=== PATIENT | male | born 1985 | race Two or more races ===

== ENCOUNTER 2024-06-05 18:55 | Emergency (ER) | payer BC, OTHER ==
[~2024-06-05] VITALS: Ht 175.3 cm; Wt 107.2 kg
[2024-06-05 19:00] VITALS: BP 126/69; PULSE 87; RESP 18; TEMP 98.3; O2SAT 97
--- NOTE | 2024-06-05 20:19 | ED.PDOC ---
History of Present Illness(SKN HPI Comments PATIENT CAME IN DUE TO AN ABRASION TO RIGHT OUTER ELBOW. STATESYESTERDAY HE ACCIDENTLY CUT HIMSELF WITH A "MOCK UP MAKER TOOL. HE HAS NUMBNESS, WEAKNESS, NO NOTED BLEEDING NO NOTED OBVIOUS FOREIGN BODY DENIES ANY OTHER CUTS OR ABRASIONS OR LACERATIONS. Chief Complaint: Abrasion Time Seen by MD: 18:56 Primary Care Provider: NONE History of Present Illness: Nurses Notes, Medications, Allergies Allergies: Coded Allergies: NO KNOWN ALLERGIES (Unverified , 06/05/24) Home Meds Active Scripts Bacitracin (Bacitracin Oint) 1 Applic Ap, 1 APPLIC TOP DAILY for 5 Days, #3 GM THIN LAYER TO THE WOUND ONCE DAILY WITH DRESSING CHANGE X5 DAYS Prov:ELO VEGA [facility] 06/05/24 Ibuprofen (Ibuprofen) 800 Mg Tab, 800 MG PO Q8HP PRN for 5 Days, #15 TAB Prov:ELO VEGA [facility] 06/05/24 Information Source: Patient Mode of Arrival: Ambulatory Past Medical History PAST MEDICAL HISTORY: Denies Surgical History: Denies all surgeries Family History Family History: Unknown Social History Smoker: Non-Smoker Alcohol: Denies ETOH Use Drugs: Denies Drug Use Constitutional: denies: chills, diaphoresis, fatigue, fever, malaise, sweats, weakness, others EENTM: denies: blurred vision, double vision, ear bleeding, ear discharge, ear drainage, ear pain, ear ringing, eye pain, eye redness, hearing loss, mouth pain, mouth swelling, nasal discharge, nose bleeding, nose congestion, nose pain, photophobia, tearing, throat pain, throat swelling, voice changes, others Respiratory: denies: cough, hemoptysis, orthopnea, SOB at rest, shortness of breath, SOB with excertion, stridor, wheezing, others Cardiovascular: denies: chest pain, dizzy spells, diaphoresis, Dyspnea on exertion, edema, irregular heart beat, left arm pain, lightheadedness, palpitations, PND, syncope, others Gastrointestinal: denies: abdomen distended, abdominal pain, blood streaked bowels, constipated, diarrhea, dysphagia, difficulty swallowing, hematemesis, melena, nausea, poor appetite, poor fluid intake, rectal bleeding, rectal pain, vomiting, others Genitourinary: denies: burning, dysuria, flank pain, frequency, hematuria, incontinence, penile discharge, penile sore, pain, testicle pain, testicle swelling, urgency, others Neurological: denies: dizziness, fainting, headache, left sided numbness, left sided weakness, numbness, paresthesia, pre-existing deficit, right sided numbness, right sided weakness, seizure, speech problems, tingling, tremors, weakness, others Musculoskeletal: denies: back pain, gout, joint pain, joint swelling, muscle pain, muscle stiffness, neck pain, others Integumetry: reports: wounds (ABRASION TO RIGHT PROXIMAL FOREARM); denies: bruises, change in color, change in hair/nails, dryness, laceration, lesions, lumps, rash, others Allergic/Immunocompromised: denies: Difficulty Healing, Frequent Infections, Hives, Itching, others Hematologic/Lymphatic: denies: anemia, blood clots, easy bleeding, easy bruising, swollen glands, others Endocrine: denies: excessive hunger, excessive sweating, excessive thirst, excessive urination, flushing, intolerance to cold, intolerance to heat, unexplained weight gain, unexplained weight loss, others Psychiatric: denies: anxiety, bipolar disorder, depression, hopeless, panic disorder, schizophrenia, sleepless, suicidal, others Physical Exam General Appearance: No Apparent Distress, Normal HEENT: Pharynx Normal Neck: Full Range of Motion, Non-Tender Respiratory: Lungs Clear, No Respiratory Distress, Normal Breath Sounds Cardiovascular: No Murmur, Normal Peripheral Pulses, Regular Rate/Rhythm Breast Exam: Deferred Gastrointestinal: Non Tender, Soft Genitalia: Deferred Pelvic: Deferred Rectal: Deferred Extremities: Normal capillary refill, Normal inspection, Normal range of motion, Non-tender, No pedal edema Musculoskeletal : Apperance: Normal Neurologic: Alert, substation operator chief II-XII nml as Tested, No Motor Deficits, Normal Affect, Normal Mood, No Sensory Deficits Cerebellar Function: Normal Reflexes: Normal Skin: Dry, Normal Color, Warm, Wounds (SUPERFICIAL ABRASION NOTED RIGHT PROXIMAL FOREARM AND AC AREA BLEEDING CONTROLLED NO NOTED DRAINAGE OR OPEN LESIONS NO SURROUNDING ERYTHEMA STRENGTH SENSORY MOTION INTACT POSITIVE RADIAL PULSE) Lymphatic: No Adenopathy Was a procedure done? Was a procedure done?: No Differential Diagnosis (INTG) Differential Diagnosis: Cellulitis, Contusion, Fracture, Hematoma, Laceration, Puncture Wound Differential Diagnosis: Abscess X-Ray, Labs, Meds, VS Vital Signs Date Time Temp Pulse Resp B/P (MAP) Pulse Ox O2 Delivery O2 Flow Rate FiO2 06/05/24 19:00 98.3 87 18 126/69 (88) 97 98.3 06/05/24 19:00 98.3 87 18 126/69 (88) 97 98.3 06/05/24 19:00 Room Air Current Medications Medications (Trade) Dose Ordered Sig/Kayli Route Start Time Stop Time Status Last Admin Bacitracin 1 applic ONCE ONCE TOP 06/05/24 20:30 06/05/24 20:31 DC 06/05/24 20:39 Acetaminophen/ Hydrocodone Bitart (Harris 5/325MG Tab) 1 tab ONCE ONCE PO 06/05/24 20:30 06/05/24 20:31 DC 06/05/24 20:40 Diphtheria/ Tetanus/Acell Pertussis (Boostrix T-Dap) 0.5 ml ONCE ONCE IM 06/05/24 20:30 06/05/24 20:31 DC 06/05/24 20:57 X-Ray, Labs, Meds, VS Comment WOUND CLEANSED DRESSING ALONG WITH BACITRACIN APPLIED. PATIENT GIVEN SCRIPT FOR BACITRACIN AND CARE PACKAGE FOR DRESSING CHANGES Q 24 HOURS ADVISED TO FOLLOW UP WITH HIS PCP IN 1-2 DAYS FOR WOUND RE-EVALUATION ER RETURN PRECAUTIONS GIVEN PATIENT INDICATES UNDERSTANDING AGREES WITH DISCHARGE PLAN OF CARE. Time of 1ST Reevaluation: 20:18 Reevaluation 1ST: Unchanged Patient Education/Counseling: Diagnosis, Treatment, Prognosis, Need For Follow Up Family Education/Counseling: No Family Present Departure 1 Departure Time of Disposition: 21:00 Impression: Primary Impression: Abrasion of elbow, right Qualified Codes: S50.311A - Abrasion of right elbow, initial encounter Disposition: HOME / SELF CARE / HOMELESS Condition: Stable e-Prescriptions Bacitracin (Bacitracin Oint) 1 Applic Ap 1 APPLIC TOP DAILY for 5 Days, #3 GM THIN LAYER TO THE WOUND ONCE DAILY WITH DRESSING CHANGE X5 DAYS Prov: ELO VEGA 06/05/24 Ibuprofen (Ibuprofen) 800 Mg Tab 800 MG PO Q8HP PRN for 5 Days, #15 TAB Prov: ELO VEGA 06/05/24 Discharged With: Self Critical Care Note Critical Care Time?: No Stability Stability form required: No SILVIA,ELO HAND BUFFING WHEEL FORMER Jun 05, 2024 20:19
[2024-06-05] MEDS ORDERED: IBUP-1456 PO (20:25)
[2024-06-05] MEDS ORDERED: BAC09TP TOP (20:25)
[2024-06-05] MEDS: BACITRACIN TOP OINT 1 UD PKG TOP ONE (20:39)
[2024-06-05] MEDS: HYDROcodone-ACET 5/325MG TAB PO ONE (20:40)
[2024-06-05] MEDS: TETANUS-DIPTH-ACEL PERTUSSIS 0.5ML SYR Tdap IM ONE (20:57)
== END 2024-06-05 21:02 | disposition home or self-care (01) ==
LOC: ER 18:58
DX: S50.311A Abrasion of right elbow, initial encounter (principal); Z79.899 Other long term (current) drug therapy; W27.8XXA Contact with other nonpowered hand tool, initial encounter; Y93.89 Activity, other specified; Y92.89 Other specified places as the place of occurrence of the external cause; Y99.8 Other external cause status
CPT/HCPCS: 90471; 90715

== ENCOUNTER 2024-10-03 07:43 | Emergency (ER) | payer BC ==
[~2024-10-03] VITALS: Ht 175.3 cm; Wt 102.0 kg
--- NOTE | 2024-10-03 07:51 | ED.PDOC ---
GI ASSESSMENT HPI Comments 39 y/o M, with no prior medical history presents to the ED for CC of abdominal pain. Patient states, he has been experiencing intermittent LUQ abdominal pain [id number]. Patient denies nausea, vomiting, diarrhea, or constipation. No other symptoms or modifying factors are present at this time. Chief Complaint: Abdominal Pain Time Seen by MD: 08:05 Primary Care Provider: NONE Reviewed Notes: Nurses Notes, Medications, Allergies Allergies: Coded Allergies: NO KNOWN ALLERGIES (Unverified , 06/05/24) Information Source: Patient Mode of Arrival: Ambulatory Timing: Months Duration: Intermittent Prehospital treatment: None Vomitus: None Stool: Normal Severity: Moderate Recent: None Recent Hx of: None Pain Location: LUQ Modifying Factors: Nothing Associated sign and symptoms: Abdominal Pain Past Medical History PAST MEDICAL HISTORY: Denies Surgical History: Denies all surgeries Family History Family History: Unknown Social History Smoker: Non-Smoker Alcohol: Denies ETOH Use Drugs: Denies Drug Use Lives In: Home Constitutional: denies: chills, diaphoresis, fatigue, fever, malaise, sweats, weakness, others EENTM: denies: blurred vision, double vision, ear bleeding, ear discharge, ear drainage, ear pain, ear ringing, eye pain, eye redness, hearing loss, mouth pain, mouth swelling, nasal discharge, nose bleeding, nose congestion, nose pain, photophobia, tearing, throat pain, throat swelling, voice changes, others Respiratory: denies: cough, hemoptysis, orthopnea, SOB at rest, shortness of breath, SOB with excertion, stridor, wheezing, others Cardiovascular: denies: chest pain, dizzy spells, diaphoresis, Dyspnea on exertion, edema, irregular heart beat, left arm pain, lightheadedness, palpitations, PND, syncope, others Gastrointestinal: reports: abdominal pain; denies: abdomen distended, blood streaked bowels, constipated, diarrhea, dysphagia, difficulty swallowing, hematemesis, melena, nausea, poor appetite, poor fluid intake, rectal bleeding, rectal pain, vomiting, others Genitourinary: denies: burning, dysuria, flank pain, frequency, hematuria, incontinence, penile discharge, penile sore, pain, testicle pain, testicle swelling, urgency, others Neurological: denies: dizziness, fainting, headache, left sided numbness, left sided weakness, numbness, paresthesia, pre-existing deficit, right sided numbness, right sided weakness, seizure, speech problems, tingling, tremors, weakness, others Musculoskeletal: denies: back pain, gout, joint pain, joint swelling, muscle pain, muscle stiffness, neck pain, others Integumetry: denies: bruises, change in color, change in hair/nails, dryness, laceration, lesions, lumps, rash, wounds, others Allergic/Immunocompromised: denies: Difficulty Healing, Frequent Infections, Hives, Itching, others Hematologic/Lymphatic: denies: anemia, blood clots, easy bleeding, easy bruising, swollen glands, others Endocrine: denies: excessive hunger, excessive sweating, excessive thirst, excessive urination, flushing, intolerance to cold, intolerance to heat, unexplained weight gain, unexplained weight loss, others Psychiatric: denies: anxiety, bipolar disorder, depression, hopeless, panic disorder, schizophrenia, sleepless, suicidal, others All Other Systems: Reviewed and Negative Physical Exam General Appearance: No Apparent Distress, Normal HEENT: Normal ENT Inspection, Pharynx Normal Neck: Full Range of Motion, Non-Tender, Normal, Normal Inspection Respiratory: Chest Non-Tender, Lungs Clear, No Accessory Muscle Use, No Respiratory Distress, Normal Breath Sounds Cardiovascular: No Edema, No Murmur, No Gallop, Normal Peripheral Pulses, Regular Rate/Rhythm Breast Exam: Deferred Gastrointestinal: No Organomegaly, Non Tender, No Pulsatile Mass, Normal Bowel Sounds, Soft Genitalia: Deferred Pelvic: Deferred Rectal: Deferred Extremities: No calf tenderness, Normal capillary refill, Normal inspection, Normal range of motion, Non-tender, No pedal edema Musculoskeletal : Apperance: Normal Neurologic: Alert, enterprise systems architect II-XII nml as Tested, No Motor Deficits, Normal Affect, Normal Mood, No Sensory Deficits Cerebellar Function: Normal Reflexes: Normal Skin: Dry, Normal Color, Warm Lymphatic: No Adenopathy Was a procedure done? Was a procedure done?: No GI differential Dx Differential Diagnosis: Diverticular disease, Gastritis/PUD, Gastroenteritis, Inflammatory BD, Pancreatitis X-Ray, Labs, Meds, VS Vital Signs Date Time Temp Pulse Resp B/P (MAP) Pulse Ox O2 Delivery O2 Flow Rate FiO2 10/03/24 09:54 63 18 98 Room Air* 0 21 10/03/24 09:54 98.1 63 18 122/76 (91) 98 98.1 10/03/24 07:45 97.7 66 16 125/77 98 97.7 Lab Test 10/03/24 09:25 Range/Units White Blood Count 5.6 4.4-10.8 10^3/uL Red Blood Count 5.18 4.5-5.90 10^6/uL Hemoglobin 15.8 13.5-17.5 g/dL Hematocrit 46.5 41.0-53.0 % Mean Corpuscular Volume 89.7 80.0-100.0 fL Mean Corpuscular Hemoglobin 30.6 28.0-32.0 pg Mean Corpuscular Hemoglobin Concent 34.1 32.0-36.0 g/dL Red Cell Distribution Width 13.5 11.8-14.3 % Platelet Count 281 140-450 10^3/uL Mean Platelet Volume 7.4 6.9-10.8 fL Neutrophils (%) (Auto) 51.1 37.0-80.0 % Lymphocytes (%) (Auto) 39.4 10.0-50.0 % Monocytes (%) (Auto) 7.2 0.0-12.0 % Eosinophils (%) (Auto) 1.6 0.0-7.0 % Basophils (%) (Auto) 0.7 0.0-2.0 % Neutrophils # (Auto) 2.9 1.6-8.6 10 ^3/uL Lymphocytes # (Auto) 2.2 0.4-5.4 10 ^3/uL Monocytes # (Auto) 0.4 0-1.3 10 ^3/uL Eosinophils # (Auto) 0.1 0-0.8 10 ^3/uL Basophils # (Auto) 0 0-0.2 10 ^3/uL Nucleated Red Blood Cells 0.1 % Sodium Level 139 136-145 mmol/L Potassium Level 4.3 3.5-5.1 mmol/L Chloride Level 104 98-107 mmol/L Carbon Dioxide Level 27 20-31 mmol/L Anion Gap 8 5-15 Blood Urea Nitrogen 8 L 9-23 mg/dL Creatinine 0.97 0.700-1.30 mg/dL Glomerular Filtration Rate Calc 101 >90 mL/min BUN/Creatinine Ratio 8.2 L 10.0-20.0 Serum Glucose 89 74-106 mg/dL Calcium Level 9.3 8.7-10.4 mg/dL Total Bilirubin 0.7 0.2-1.0 mg/dL Aspartate Amino Transferase (AST) 29 13-40 U/L Alanine Aminotransferase (ALT) 56 H 7-40 U/L Alkaline Phosphatase 89 46-116 U/L Total Protein 7.5 5.7-8.2 g/dL Albumin 4.6 3.2-4.8 g/dL Lipase 38 12-53 U/L Current Medications Medications (Trade) Dose Ordered Sig/Kayli Route Start Time Stop Time Status Last Admin Famotidine (Pepcid Tablet) 20 mg ONCE ONCE PO 10/03/24 08:15 10/03/24 08:16 DC 10/03/24 09:49 Acetaminophen (Tylenol Tablet) 650 mg ONCE ONCE PO 10/03/24 08:15 10/03/24 08:16 DC 10/03/24 09:49 Al Hydrox/Mg Hydrox/Simethicone (Maalox Plus) 15 ml ONCE ONCE PO 10/03/24 08:15 10/03/24 08:16 DC 10/03/24 09:49 Time of 1ST Reevaluation: 08:35 Reevaluation 1ST: Unchanged Patient Education/Counseling: Diagnosis, Treatment Family Education/Counseling: No Family Present SEPSIS Sepsis Screen Physician Orders Chest Portable (10/03/24 10:46) Ct Ab Pel Wo Con-No Oral Or Iv (10/03/24 10:46) Vital Signs Date Time Temp Pulse Resp B/P (MAP) Pulse Ox O2 Delivery O2 Flow Rate FiO2 10/03/24 09:54 63 18 98 Room Air* 0 21 10/03/24 09:54 98.1 63 18 122/76 (91) 98 98.1 10/03/24 07:45 97.7 66 16 125/77 98 97.7 Laboratory Tests Test 10/03/24 09:25 White Blood Count 5.6 10^3/uL (4.4-10.8) Medications Medications Dose Ordered Sig/Kayli Route Start Time Stop Time Status Last Admin Dose Admin Acetaminophen 650 mg ONCE ONCE PO 10/03/24 08:15 10/03/24 08:16 DC 10/03/24 09:49 Al Hydrox/Mg Hydrox/Simethicone 15 ml ONCE ONCE PO 10/03/24 08:15 10/03/24 08:16 DC 10/03/24 09:49 Famotidine 20 mg ONCE ONCE PO 10/03/24 08:15 10/03/24 08:16 DC 10/03/24 09:49 Departure 1 Departure Time of Disposition: 13:50 (Patient presented with abdominal pain that was concerning for possible appendicits, gastritis, cholecystitis, colitis, gastroenteritis, or orther possible surgical emergency. Data: 1. I ordered and reviewed the result of at least 3 labs including a CBC, BMP, and Urinalysis. 2. I independently interpreted the following tests: CT Abdoment and Pelvis is concerning for benign abdomen.Risk:This patient has a high risk of morbidity due to further diagnostic testing or treatment and may suffer from an acute abdominal process disorder. Fortunately workup reveals benign abdomen and patient can be safely discharged to home with outpatient follow up.) Impression: Primary Impression: Left upper quadrant pain Disposition: HOME / SELF CARE / HOMELESS Condition: Stable Referrals: EILEEN ESPINOSA MD Additional Instructions: Your workup today was benign including normal labs and ct scan of your abdomen and pelvis. You were referred to gastroenterology. Please call for an appointment. For pain you can take the followinam: Ibuprofen 400mg with food Noon: Acetaminophen 1000mg 4pm: Ibuprofen 400mg with food 8pm: Acetaminophen 1000mg You should follow up with your regular doctor within one week to ensure you are doing better. If your symptoms worsen or you have any other concerns then please return to the ER. Discharged With: Self Critical Care Note Critical Care Time?: No Stability Stability form required: No Heart Score Heart Score: Heart Score Response (Comments) Value History N/A 0 EKG N/A 0 Age N/A 0 Risk Factors N/A 0 Troponin N/A 0 Total 0 I personally scribed for DEVEN GARDINER MD ([email or web address]) on 10/03/24 at 07:50. Electronically submitted by Mitzy Rios ([email or web address]). I personally scribed for DEVEN GARDINER MD ([email or web address]) on 10/03/24 at 08:32. Electronically submitted by Mitzy Rios ([email or web address]). DEVEN GARDINER MD Oct 03, 2024 07:50
[2024-10-03 09:41] LABS: Hematocrit 46.5 % (41.0-53.0); Hemoglobin 15.8 g/dL (13.5-17.5); Mean Corpuscular Hemoglobin 30.6 pg (28.0-32.0); Mean Corpuscular Volume 89.7 fL (80.0-100.0); Nucleated Red Blood Cells % 0.1 %
[2024-10-03] MEDS: MAALOX PLUS or MAALOX 30 ML PO ONE (09:49)
[2024-10-03] MEDS: ACETAMINOPHEN 325 MG TAB PO ONE (09:49)
[2024-10-03] MEDS: FAMOTIDINE 20 MG TAB PO ONE (09:49)
[2024-10-03 09:52] LABS: Albumin 4.6 g/dL (3.2-4.8); Alkaline Phosphatase 89 U/L (46-116); Anion Gap 8 (5-15); BUN/Creatinine Ratio 8.2 (10.0-20.0); Calcium 9.3 mg/dL (8.7-10.4); Carbon Dioxide 27 mmol/L (20-31); Chloride 104 mmol/L (98-107); Glucose 89 mg/dL (74-106); Potassium 4.3 mmol/L (3.5-5.1); Sodium 139 mmol/L (136-145); Total Protein 7.5 g/dL (5.7-8.2)
[2024-10-03 09:53] LABS: Bilirubin, Total 0.7 mg/dL (0.2-1.0)
[2024-10-03 09:54] VITALS: BP 122/76; PULSE 63; RESP 18; TEMP 98.1; O2SAT 98
[2024-10-03 09:54] LABS: Alanine Aminotransferase 56 U/L (7-40); Blood Urea Nitrogen 8 mg/dL (9-23)
[2024-10-03 10:19] LABS: Lipase 38 U/L (12-53)
--- NOTE | 2024-10-03 11:24 | DVH ---
EXAM: XY CHEST PORTABLE Indication: left chest wall pain Technique: Single frontal view of the chest was obtained Comparison: None FINDINGS: Lines and Tubes: None Lungs: No focal consolidation. Pleura: No effusion. No pneumothorax. Cardiomediastinal contours: Unremarkable Bones: No acute osseous abnormality. IMPRESSION: No acute cardiopulmonary disease.
--- NOTE | 2024-10-03 11:59 | DVH ---
CT CT AB PEL WO CON-NO ORAL OR IV INDICATION: left flank pain EXAM DATE: 10/03/2024 10:52 AM COMPARISON: None RADIATION DOSE: CTDIvol: 23 mGy, DLP: 1422 mGy*cm PROCEDURE: Helical CT images were obtained of the abdomen and pelvis without IV contrast Sagittal and coronal reconstructions are provided. ORAL CONTRAST: None. ADDITIONAL IMAGES / REFORMATS: None All C T scans at this medical facility are performed using dose modulation techniques as appropriate to a p erformed exam including the following: Automated exposure control was utilized; adjustment of the MA and/or KV according to patient size; and use of iterative reconstruction technique. FINDINGS: LUNG BASE: Normal. LIVER: Hepatic steatosis. GALLBLADDER AND BILIARY TREE: No calcified gallstones. Normal caliber wall. No intra- or extrahepatic biliary ductal dilation. PANCREAS: Normal. SPLEEN: Normal. BOWEL: Normal. Normal appendix. ADRENALS: Normal. KIDNEYS AND URETER: Normal. No kidney stones are seen. BLADDER: Normal. REPRODUCTIVE ORGANS: Normal. LYMPH NODES:No lymphadenopathy. PERITONEUM: No ascites or free air. No other fluid collection. VESSELS: Scattered atherosclerotic calcifications are noted. RETROPERITONEUM: Normal. ABDOMINAL WALL: Normal. BONES: Scattered osseous degenerative changes are noted. IMPRESSION: No acute intraabdominal abnormality. No kidney stones are seen. Hepatic steatosis.
== END 2024-10-03 14:55 | disposition home or self-care (01) ==
LOC: ER 07:43
DX: R10.12 Left upper quadrant pain (principal)
CPT/HCPCS: 36415; 71045; 74176; 80053; 83690; 85025

== ENCOUNTER 2024-12-06 11:26 | Outpatient (CLI) | payer BC ==
[2024-12-06 12:11] LABS: Urine Protein, UAD Negative (Negative)
[2024-12-06 12:12] LABS: Hematocrit 48.0 % (41.0-53.0); Hemoglobin 16.5 g/dL (13.5-17.5); Mean Corpuscular Hemoglobin 30.3 pg (28.0-32.0); Mean Corpuscular Volume 88.3 fL (80.0-100.0); Nucleated Red Blood Cells % 0.1 %
[2024-12-06 12:26] LABS: INR 0.98 (0.9-1.15); Prothrombin Time 10.4 sec (9.3-11.8)
[2024-12-06 13:08] LABS: Prostate Specific Antigen 0.46 ng/mL (0.0-4.0)
[2024-12-06 13:09] LABS: Alkaline Phosphatase 90 U/L (46-116); Anion Gap 10 (5-15); BUN/Creatinine Ratio 12.2 (10.0-20.0); Blood Urea Nitrogen 12 mg/dL (9-23); Calcium 9.4 mg/dL (8.7-10.4); Carbon Dioxide 28 mmol/L (20-31); Chloride 101 mmol/L (98-107); Glucose 89 mg/dL (74-106); Potassium 4.3 mmol/L (3.5-5.1); Sodium 139 mmol/L (136-145)
[2024-12-06 13:10] LABS: Albumin 4.5 g/dL (3.2-4.8); Total Protein 8.0 g/dL (5.7-8.2)
[2024-12-06 13:11] LABS: Cholesterol 185 mg/dL (< 200)
[2024-12-06 13:12] LABS: Alanine Aminotransferase 49 U/L (7-40); Bilirubin, Total 0.7 mg/dL (0.2-1.0); HDL Cholesterol 37 mg/dL (40-59); Triglycerides 238 mg/dL (< 150)
[2024-12-06 13:14] LABS: Free T4 (Free Thyroxine) 1.12 ng/dL (0.89-1.76)
== END 2024-12-08 17:00 | disposition home or self-care (01) ==
LOC: LAB 11:26
PROVIDERS: ATTEND Internal Medicine
DX: K59.09 Other constipation (principal); R35.1 Nocturia
CPT/HCPCS: 36415; 80053; 80061; 81001; 83036; 84153; 84439; 84443; 85025; 85610; 85652